=== PATIENT | female | born 1990 | race Caucasian/White ===

== ENCOUNTER 2023-11-10 19:53 | Emergency (ER) | payer SELFPAY ==
[2023-11-10 19:56] VITALS: BP 129/79; BMI 29.7
[2023-11-10 20:23] LABS: % Basophils 0.5 % (0-2); % Immature Granulocytes 0.2 % (0-0.5); % Monocytes 7.9 % (1.7-9.3); % Neutrophils 50.4 % (42.2-75.2); Absolute Eosinophils 0.2 10^3/uL (0-0.7); Absolute Lymphocytes 3.3 10^3/uL (1.2-3.4); Absolute Monocytes 0.7 10^3/uL (0.1-0.6); Absolute Neutrophils 4.2 10^3/uL (1.4-6.5); Hematocrit 40.2 % (37.0-47.0); Hemoglobin 14.7 g/dL (12.0-16.0); Mean Corp Hgb Conc. 36.6 g/dL (33.0-37.0); Mean Corpuscular Hgb 32.5 pg (27.0-31.0); Mean Corpuscular Volume 88.7 fL (81.0-99.0); Mean Platelet Volume 9.9 fL (7.4-10.4); Nucleated Red Blood Cells % 0 %; Platelet Count 278 10^3/uL (130-400); Red Blood Cell Count 4.53 10^6/uL (4.20-5.40); Red Cell Dist. Width 12.3 % (11.5-14.5); White Blood Cell Count 8.4 10^3/uL (4.8-10.8)
--- NOTE | 2023-11-10 20:25 | ED.GENMED ---
History of Present Illness
General
Chief Complaint: Chest Pain
Time Seen by Provider: 11/10/23 20:25
Travel History
Have you had any contact with someone who has COVID-19?: No
Do you have any symptoms of coronavirus? Fever > 100 degrees, chills, cough, shortness of breath, sore throat, loss of taste or smell, muscle aches, or headache?: No
History of Present Illness
History of Present Illness:
HPI: Patient presents due to chest discomfort associated with some degree of shortness of breath. These are intermittently occurring and associated with facial flushing when the symptoms occur. She thinks that possibly the symptoms may be related
to anxiety. Her symptoms started at 9 AM today. She apparently was at [facility] earlier today but did not stay due to the prolonged ER wait but was told that her blood pressure systolic was 160.
EXAM:
GENERAL: Well appearing in no distress, near normal blood pressure
HEENT: Moist oral mucosa
CARDIOVASCULAR: No murmurs, normal heart rate, regular rhythm, No chest wall tenderness
PULMONARY: No respiratory distress, breath sounds are clear and equal
ABDOMEN: Soft with no peritoneal signs, no tenderness
NEUROLOGIC: Excellent strength all extremities, no coordination deficits
PSYCHIATRIC: Appropriate mental status, normal insight and judgement
EXTREMITIES: Nontender, no edema, moves all extremities equally
SKIN: No rash, no lesions
TIME OF INITIAL ENCOUNTER: 8:30 PM
NUMBER AND COMPLEXITY OF PROBLEMS ADDRESSED AT THE ENCOUNTER
� Chronic conditions affecting care: No significant past medical history
� Acute Exacerbation and/or Progression of Chronic Illness: An acute problem
� Differential Diagnosis includes: Anxiety, chest wall pain, hypertensive urgency, Lyme disease
AMOUNT AND/OR COMPLEXITY OF DATA TO BE REVIEWED AND ANALYZED
� I performed an independent evaluation of and my interpretation is:
EKG: Sinus 83, normal axis, no acute ST abnormality
CT:
X-rays: No acute abnormality noted on chest x-ray
Laboratory Studies: CBC unremarkable, troponin and chemistries negative. Lyme testing pending.
Other:
� Review of other/old records: No old records available for review
� Clinical information was obtained by an independent historian: I spoke to the mother at bedside
� Prescriptions/Medications Considered but not given:
� Further testing considered but not performed:
RISK OF COMPLICATIONS AND/OR MORBIDITY OR MORTALITY OF PATIENT MANAGEMENT
� Social determinants of health affecting care: Lives at home
� Discussion with other providers:
� Escalation of care including admission/observation vs risk of discharge considered: The patient appears fairly comfortable. Chest x-ray, labs including troponin unremarkable. Lyme test is pending. Unclear etiology of
patient's symptoms however on reassessment in 20 p.m., she appears very comfortable. She is to follow-up with PMD for BP reassessment as well.
Past History
Past History
ED Past Medical History: None
ED Past Surgical History:
Social History
Tobacco: Smoker
Alcohol: Occasional
Drug: None
Personal: Single
Living: with family
Phy Exam
Physical Exam
Physical Exam:
See HPI
Scores
Heart Score for Chest Pain Patients
STEMI patient?: Not applicable
Course
Orders/Labs/Results
Orders:
Orders
11/10/23 19:55
EKG [Electrocardiogram (*1)] Urgent
Reason for Study: Chest Pain
EKG- Treatment ONCE
11/10/23 20:05
Test Result ONCE
11/10/23 20:11
Complete Blood Count/With Diff Urgent
Comprehensive Metabolic Panel Urgent
HCG, Serum Qualitative Screen Urgent
Lyme Progressive Urgent
Troponin I Urgent
11/10/23 20:35
CR Chest - 2 Views Urgent
Comment:
Reason For Exam: intermittent CP
Abnormal Lab Results
11/10/23
20:11
MCH 32.5 H pg
(27.0-31.0)
Absolute Monos (auto) 0.7 H 10^3/uL
(0.1-0.6)
Carbon Dioxide 21 L mmol/L
(22-30)
Glucose 106 H mg/dl
(70-99)
11/10/23 20:11
11/10/23 20:11
Vital Signs
Initial and Last Documented VS:
Initial Vital Signs
Temp Pulse Resp BP Pulse Ox
98.3 F 74 18 129/79 100
11/10/23 19:56 11/10/23 19:56 11/10/23 19:56 11/10/23 19:56 11/10/23 19:56
Last Documented Vital Signs
Temp Pulse Resp BP Pulse Ox
98 F 69 16 119/68 99
11/10/23 22:19 11/10/23 22:19 11/10/23 22:19 11/10/23 22:19 11/10/23 22:19
*Critical Care Note
Total Time (30-74mins, 75-104mins- exclusive of procedures): Not Applicable
ED Attending Note
-
Portions of this chart may have been created with voice recognition software.� Occasional wrong word or��sound alike� substitutions may have occurred due to the inherent limitations of voice recognition software.
Discharge Plan
Departure
Patient Disposition: Home (Routine Discharge)
Date of Disposition: 11/10/23
Time of Disposition: 23:19
Patient with high blood pressure during this ER visit?: Yes
Discharge Problem:
Chest pain
Instructions: Chest Pain PCP Follow Up, BLOOD PRESSURE
Prescriptions:
No Action
No Current Medications
cephalexin 500 MG capsule
500 mg PO QID Qty: 40 0RF
Referrals:
Yue Can MD [Family Provider] -
Activity Restrictions/Additional Instructions:
The cause of your chest pain is unclear, cardiac blood work is negative, other basic labs are unremarkable, test is negative. Lyme test is pending. Chest x-ray was clear.
Interventions
Interventions:
*Risk Screen - Suicide Last Done: 11/10/23 19:56
*General Assessment Last Done: 11/10/23 19:56
*Neglect/Abuse Screening Last Done: 11/10/23 19:56
ED- Fall Risk Assessment Last Done: 11/10/23 20:38
*ED COVID-19 Vaccine History Last Done: 11/10/23 19:56
ED- Cardiac Assessment Last Done: 11/10/23 20:38
Discharge Date and Time
Print Language: [place]
[2023-11-10 20:34] LABS: HCG, Serum Qualitative Screen Negative
[2023-11-10 20:41] LABS: ALT (SGPT) 21 U/L (0-35); AST (SGOT) 21 U/L (14-36); Albumin 4.5 g/dl (3.5-5.0); Alkaline Phosphatase 44 U/L (38-126); Blood Urea Nitrogen 12 mg/dl (7-17); Calcium 9.8 mg/dl (8.4-10.2); Carbon Dioxide 21 mmol/L (22-30); Chloride 102 mmol/L (98-107); Estimated Creatinine Clearance > 125 ml/min; Glucose 106 mg/dl (70-99); Potassium 3.6 mmol/L (3.5-5.1); Sodium 135 mmol/L (135-145); Total Bilirubin 0.4 mg/dl (0.2-1.3); Total Protein 7.1 g/dl (6.3-8.2); eGFR > 60.00
[2023-11-10 20:46] LABS: Troponin I < 0.012 ng/ml
[2023-11-10 22:19] VITALS: BP 119/68
[2023-11-10 23:37] VITALS: BP 132/83
[2023-11-14 12:58] LABS: Lyme Antibody Screen, EIA Negative (Negative)
== END 2023-11-10 23:38 | disposition home or self-care (01) ==
LOC: EMR 19:53
PROVIDERS: Emergency Medicine; EMERGENCY PHYSICIAN Emergency Medicine; FAMILY PHYSICIAN Family Medicine
DX: R07.89 Other chest pain (principal); R06.02 Shortness of breath; R23.2 Flushing; F17.200 Nicotine dependence, unspecified, uncomplicated; R03.0 Elevated blood-pressure reading, without diagnosis of hypertension
CPT/HCPCS: 99285; 71046; 80053; 84484; 84703; 85025; 86618; 93005